=== PATIENT | male | born 1950 ===

== ENCOUNTER 2017-04-17 06:06 | Day surgery (SDC) | payer MEDICARE, OTHER ==
--- NOTE | 2017-04-16 12:51 | Pre-Procedure Note/Attestation ---
Pre-Procedure Note/Attestation Complete Prior to Procedure Planned Procedure: right Procedure Narrative: phaco with IOL, OD Indications for Procedure Pre-Operative Diagnosis: cataract Attestation I attest that I discussed the nature of the procedure; its benefits; risks and complications; and alternatives (and the risks and benefits of such alternatives ), prior to the procedure, with the patient (or the patient's legal health and safety representative). I attest that, if there was a reasonable possibility of needing a blood transfusion, the patient (or the patient's legal health and safety representative) was given the [facility] standardized written summary, pursuant to the [place] Blood Safety Act ([place] Health and Safety Code # 1645, as amended). I attest that I re-evaluated the patient just prior to the surgery and that there has been no change in the patient's H&P, except as documented below: SHELLY SIMMS Apr 16, 2017 12:51
--- NOTE | 2017-04-16 12:54 | Opthalmology H&P ---
Ophthalmology H&P H&P Chief Complaint: decreased vision in right eye HPI Vision Affects Ability to: read, focus/use eyes together, manage personal affairs HPI Narrative blurry vision Exam Visual Acuity: OD: 20/100 OS: 20/80 Tension: OD: 13 OS: 16 Eye Exam: normal OU: external exam, palpebral fissure-width, marginal reflex distance, levator function, corneas, anterior chambers, findings: lens - OD: ns OS: ns, fundus exam - increased cd Ratio Assessment/Plan Diagnosis: (1) Nuclear senile cataract of right eye Attestation Attestation The risks and benefits of the surgery as well as alternative procedures were explained to the patient in detail. SHELLY SIMMS Apr 16, 2017 12:54
[~2017-04-17] VITALS: Ht 188 cm; Wt 72.6 kg
[2017-04-17] VITALS (10 sets, daily range): BP systolic 121–136; BP diastolic 65–80
[~2017-04-17 06:06] MED LIST: ASPIR 8181 MG ORAL; BENICAR20 MG ORAL; DEXILANT30 MG ORAL; LIPITOR40 MG ORAL; MULTIVITAMINS1 EAC2 ORAL; VITAMIN D1000 UNI1 ORAL
[2017-04-17] MEDS ORDERED: Tetracaine 0.5% Opth 4ml Soln RIGHT EYE ONE (07:00)
[2017-04-17] MEDS ORDERED: Akten 3.5% 1ml Btl RIGHT EYE ONE (07:00)
[2017-04-17] MEDS ORDERED: Proparacaine 0.5% Opth Soln 15ml RIGHT EYE ONE (07:00)
[2017-04-17] MEDS: Tropicamide 1% Opth 15ml Soln RIGHT EYE SCH ×3 (08:30→08:56)
[2017-04-17] MEDS: Cyclopentolate 1% Opth Sol 2ml RIGHT EYE SCH ×3 (08:31→08:55)
[2017-04-17] MEDS: Tobramycin Op Soln 0.3% 5ml RIGHT EYE SCH ×3 (08:31→08:55)
[2017-04-17] MEDS: Phenylephrine 10% Opth Soln 5ml RIGHT EYE SCH ×3 (08:31→08:56)
[2017-04-17] MEDS: Ketorolac Tromethamine Opth 5ml Soln RIGHT EYE SCH ×3 (08:31→08:55)
[2017-04-17] MEDS ORDERED: Maxitrol Opth Oint 3.5gm ONE (09:00)
[2017-04-17] MEDS ORDERED: Sterile Water Irrig 1000ml IRRIG ONE (09:00)
[2017-04-17] MEDS ORDERED: Pred Forte 1% Opth Susp 1ml ONE (09:00)
[2017-04-17] MEDS ORDERED: LR 1000ml ONE (09:00)
[2017-04-17] MEDS ORDERED: Sterile Water 10ml Vial ONE (09:00)
[2017-04-17] MEDS ORDERED: EPINEPHrine 1mg/1ml Amp ONE (09:00)
[2017-04-17] MEDS ORDERED: NS Irrig 1000ml ONE (09:00)
[2017-04-17] MEDS ORDERED: BSS 500ml btl ONE (09:00)
[2017-04-17] MEDS ORDERED: Dexamethasone 4mg/ml vial ONE (09:00)
[2017-04-17] MEDS ORDERED: fentaNYL 100 mcg/2 mL IV ONE (09:00)
[2017-04-17] MEDS ORDERED: Midazolam 2mg/2ml Inj ONE (09:00)
--- NOTE | 2017-04-17 09:07 | Anethesia Preoperative Eval ---
Anesthesia Pre-op PMH/ROS General Date of Evaluation: Apr 17, 2017 Time of Evaluation: 09:06 Anesthesiologist: scarlet ASA Score: ASA 2 Mallampati Score Class I : Soft palate, uvula, fauces, pillars visible Class II: Soft palate, uvula, fauces visible Class III: Soft palate, base of uvula visible Class IV: Only hard plate visible Mallampati Classification: Class II Surgeon: sarah Diagnosis: cataract Surgical Procedure: cataract surgergy Family History: no anesthesia problems Allergies: Coded Allergies: IODINE (Verified Allergy, Severe, 04/16/17) REDNESS, ITCHING, BLISTERS Medications: see eMAR Past Medical History Cardiovascular: Reports: HTN, CAD Pulmonary: Denies: asthma, COPD, CAN, other Gastrointestinal/Genitourinary: Denies: GERD, CRI, ESRD, other Neurologic/Psychiatric: Denies: dementia, CVA, depression/anxiety, TIA, other Endocrine: Denies: DM, hypothyroidism, steroids, other HEENT: Reports: cataract (R), Denies: cataract (L), glaucoma, [place] (L), [place] (R), other Hematology/Immune: Denies: anemia, DVT, bleeding disorder, other Musculoskeletal/Integumentary: Denies: OA, RA, DJD, DDD, edema, other PSxH Narrative: left amputation; cardiac stent 2008 Anesthesia Pre-op Phys. Exam Physician Exam Last Vital Signs Date Time Temp Pulse Resp B/P (MAP) Pulse Ox O2 Delivery O2 Flow Rate FiO2 04/17/17 08:40 97.0 54 18 125/70 99 Room Air 97.0 Constitutional: NAD Neurologic: CN 2-12 intact Cardiovascular: RRR Respiratory: CTA Gastrointestinal: S/NT/ND Airway Exam Mallampati Classification 2 Mallampati Score: Class II MO: full ROM: full Dentures: no upper, no lower Anesthesia Pre-op A/P Studies Pre-op Studies: EKG - sr Risk Assessment & Plan Assessment: denies cp; sob Plan: mac Status Change Before Surgery: No Pre-Antibiotics Drug: none KEISHA NICKERSON CRNA Apr 17, 2017 09:07
[2017-04-17] MEDS ORDERED: BSS 15ml BTL ONE (09:43)
[2017-04-17] MEDS ORDERED: Povidone-Iodine 5% opth solution ONE (09:44)
[2017-04-17] MEDS ORDERED: Pilocarpine 2% Opth 15ml Soln ONE (09:44)
[2017-04-17] MEDS ORDERED: Sodium Hyaluronate 14 mg/ml 0.85ml ONE (09:44)
[2017-04-17] MEDS ORDERED: Dyna-Hex 2% Top Sol 2oz TOPIC ONE (10:00)
--- NOTE | 2017-04-17 10:03 | Immediate Post-Op Evaluation ---
Immediate Post-Op Evalulation Immediate Post-Op Evalulation Procedure: cataract extraction Date of Evaluation: Apr 17, 2017 Time of Evaluation: 09:35 IV Fluids: 300 Blood Pressure Systolic: 120 Blood Pressure Diastolic: 90 Pulse Rate: 48 Respiratory Rate: 14 O2 Sat by Pulse Oximetry: 99 Temperature (Fahrenheit): 98.0 Pain Score (1-10): 0 Nausea: No Vomiting: No Complications none Patient Status: awake, reacts, patent Hydration Status: adequate Drug: none QUINCYRINEVAIONKEISHA CRNA Apr 17, 2017 10:03
--- NOTE | 2017-04-17 11:50 | Brief Operative Note ---
Immediate Post Operative Note Operative Note Chief Complaint: blurry vision, OD Pre-op Diagnosis: cataract, OD Procedure: phaco with IOL, OD Post-op Diagnosis: pseudophakia Post-op Diagnosis: same as pre-op Findings: consistent w/pre-op dx studies Surgeon: Shelly Anesthesiologist: Zafar Anesthesia: MAC Specimen: none Complications: none Condition: stable Fluids: LR Estimated Blood Loss: none Drains: none Implant(s) used?: Yes SHELLY SIMMS Apr 17, 2017 11:50
--- NOTE | 2017-04-17 11:51 | Operative Note - PDOC ---
Operative Note Operative Note Date of Operation/Procedure: Apr 17, 2017 Chief Complaint: blurry vision, OD Pre-op Diagnosis: cataract, OD Procedure: phaco with IOL, OD Post-op Diagnosis: pseudophakia Post-op Diagnosis: same as pre-op Operative Findings: consistent w/pre-op dx studies Surgeon: Shelly Anesthesiologist: Zafar Anesthesia: MAC Specimen: none Complications: none Condition: stable Fluids: LR Estimated Blood Loss: none Drains: none Implant(s) used?: Yes Indications for Procedure cataract Description of Procedure This patient has been complaining visually significant cataract in the affected eye with the best corrected visual acuity under moderate glare conditions worse. The patient complains of difficulties with glare in performing activities of daily living and wants to manage personal affairs with comfort and accuracy and see well enough to move with safety at home and outdoors. The risks, benefits and alternatives of the procedure were discussed with the patient in the office prior to scheduling surgery. All questions from the patient were answered after the surgical procedure was explained in detail. The risks of the procedure as explained to the patient include, but are not limited to, pain, infection, bleeding, loss of vision, retinal detachment, need for further surgery, loss of lens nucleus, double vision, etc. Alternative procedures were discussed which include, to do nothing or seek a second opinion. Informed consent for this procedure was obtained from the patient. The patient was referred to a primary care physician for a cardiopulmonary clearance prior to surgery, after proper evaluation was done patient was properly scheduled for outpatient surgery. The patient was brought to the operating room where the anesthesiologist established I.V. lines and cardiac monitoring leads. Mild intravenous sedation was administered. The patient was then prepared with a 5% solution of povidone -iodine to the conjunctival fornix and lashes, and a 5% solution of povidone- iodine to the lids and periorbital skin. The patient was then draped in the usual sterile fashion. A lid speculum was then placed in the operative eye. A keratome blade was then used to create a biplanar incision into the anterior chamber. Viscoelastics was then instilled into the anterior chamber. A capsulorrhexis was then fashioned with an utrata forceps. BSS and a cannula were then used to hydrodissect and hydro delineate the lens. Paracentesis incision was made at 3 o'clock with sharp blade. The phacoemulsification unit, after being properly adjusted and tested, was then used to emulsify the nucleus followed by aspiration and irrigation of residual cortical material. Healon was then instilled into the anterior chamber. The corneal wound was then enlarged to the size of the optic with the clayton keratome blade. The intraocular lens was then inspected for right power and size and thought to be satisfactory. Then the lens was gently placed in the capsular bag. Positioning within the capsular bag was confirmed by direct visualization. Optic centration was accomplished with a Sinskey hook. Viscoelastics was removed from the anterior chamber using the irrigation and aspiration unit. The corneal wound was then tested for leaks and none were found. The lid speculum were then removed. Sponge and needle counts were correct. An eye patch and shield were placed over the operative eye. The patient was taken to the recovery room in stable condition. There were no complications. The patient tolerated the procedure well. The patient was then transferred to the ambulatory surgery unit in stable and satisfactory condition , was given detailed written instructions and asked to follow up in the office the next day. SHELLY SIMMS Apr 17, 2017 11:51
[2017-04-22 09:44] VITALS: BP 128/80
--- NOTE | 2017-04-22 09:44 | 48 Hour Post Anesthesia Eval ---
Post Anesthesia Evaluation Procedure: cataract extraction Date of Evaluation: Apr 18, 2017 Time of Evaluation: 09:43 Blood Pressure Systolic: 128 0: 80 Pulse Rate: 71 O2 Sat by Pulse Oximetry: 99 Airway: patent Nausea: No Vomiting: No Hydration Status: adequate Cardiopulmonary Status: stable Mental Status/LOC: patient returned to baseline Follow-up Care/Observations: na Post-Anesthesia Complications: none Follow-up care needed: N/A KEISHA NICKERSON CRNA Apr 22, 2017 09:44
== END 2017-04-17 11:30 | disposition home or self-care (01) ==
LOC: SUR 06:06
DX: H25.11 Age-related nuclear cataract, right eye (principal); I11.9 Hypertensive heart disease without heart failure; I25.10 Atherosclerotic heart disease of native coronary artery without angina pectoris; Z95.5 Presence of coronary angioplasty implant and graft; Z88.8 Allergy status to other drugs, medicaments and biological substances
CPT/HCPCS: 66984; J0171; J1100; J2250; J3010; J3370; J7120; V2632; 94003; 94150; A4216

== ENCOUNTER 2017-11-09 05:41 | Day surgery (SDC) | payer MEDICARE, OTHER ==
--- NOTE | 2017-11-04 15:43 | Pre-Procedure Note/Attestation ---
Pre-Procedure Note/Attestation Complete Prior to Procedure Planned Procedure: left Procedure Narrative: phaco with IOL Indications for Procedure Pre-Operative Diagnosis: cataract Attestation I attest that I discussed the nature of the procedure; its benefits; risks and complications; and alternatives (and the risks and benefits of such alternatives ), prior to the procedure, with the patient (or the patient's legal packaging sales representative). I attest that, if there was a reasonable possibility of needing a blood transfusion, the patient (or the patient's legal packaging sales representative) was given the [facility] standardized written summary, pursuant to the [place] Blood Safety Act ([place] Health and Safety Code # 1645, as amended). I attest that I re-evaluated the patient just prior to the surgery and that there has been no change in the patient's H&P, except as documented below: SHELLY SIMMS Nov 04, 2017 15:43
--- NOTE | 2017-11-04 15:45 | Opthalmology H&P ---
Ophthalmology H&P H&P Chief Complaint: decreased vision in left eye HPI Vision Affects Ability to: read, focus/use eyes together HPI Narrative blurry vision Exam Visual Acuity: OD: 20/125 OS: 20/200 Tension: OD: 16 OS: 16 Eye Exam: normal OU: external exam, palpebral fissure-width, marginal reflex distance, levator function, corneas, anterior chambers; findings: lens - OD: IOL OS: ns, fundus exam - 0.65 OU Assessment/Plan Diagnosis: (1) Nuclear senile cataract of right eye Treatment Plan: cataract extraction w/ lens implant Goals of Treatment: improvement of vision, enhance quality of life Attestation Attestation The risks and benefits of the surgery as well as alternative procedures were explained to the patient in detail. SHELLY SIMMS Nov 04, 2017 15:45
[2017-11-09] VITALS (10 sets, daily range): BP systolic 133–146; BP diastolic 54–83
[~2017-11-09] VITALS: Ht 188 cm; Wt 75.7 kg
[2017-11-09] MEDS: Tobramycin Op Soln 0.3% 5ml LEFT EYE SCH ×3 (06:52→07:08)
[2017-11-09] MEDS: Phenylephrine 10% Opth Soln 5ml LEFT EYE SCH ×3 (06:52→07:08)
[2017-11-09] MEDS: Cyclopentolate 1% Opth Sol 2ml LEFT EYE SCH ×3 (06:52→07:08)
[2017-11-09] MEDS: Diclofenac Sod 0.1% Op Soln LEFT EYE SCH ×3 (06:52→07:08)
[2017-11-09] MEDS: Tropicamide 1% Opth 15ml Soln LEFT EYE SCH ×3 (06:53→07:08)
[2017-11-09] MEDS ORDERED: Pilocarpine 2% Opth 15ml Soln ONE (07:00)
[2017-11-09] MEDS ORDERED: Pred Forte 1% Opth Susp 1ml ONE (07:00)
[2017-11-09] MEDS ORDERED: Akten 3.5% 1ml Btl LEFT EYE ONE (07:00)
[2017-11-09] MEDS ORDERED: Proparacaine 0.5% Opth Soln 15ml LEFT EYE ONE (07:00)
[2017-11-09] MEDS ORDERED: Dexamethasone 4mg/ml vial ONE (07:00)
[2017-11-09] MEDS ORDERED: Tetracaine 0.5% Opth 4ml Soln LEFT EYE ONE (07:00)
[2017-11-09] MEDS ORDERED: Maxitrol Opth Oint 3.5gm ONE (07:00)
[2017-11-09] MEDS ORDERED: Midazolam 2mg/2ml Inj ONE (07:42)
[2017-11-09] MEDS ORDERED: DiphenhydrAMINE 50mg/ml Inj IVP PRN (08:15)
[2017-11-09] MEDS ORDERED: LR 1000ml 1,000 ML IVLG SCH (08:15)
[2017-11-09] MEDS ORDERED: fentaNYL 100 mcg/2 mL IV PRN (08:15)
--- NOTE | 2017-11-09 08:15 | Anethesia Preoperative Eval ---
Anesthesia Pre-op PMH/ROS General Date of Evaluation: Nov 09, 2017 Time of Evaluation: 08:11 Anesthesiologist: Sapna ASA Score: ASA 3 Mallampati Score Class I : Soft palate, uvula, fauces, pillars visible Class II: Soft palate, uvula, fauces visible Class III: Soft palate, base of uvula visible Class IV: Only hard plate visible Mallampati Classification: Class II Surgeon: Shelly Diagnosis: L eye cataract Surgical Procedure: L eye cataract extraction Anesthesia History: none Social History: smoking - h/o Family History: no anesthesia problems Allergies: Coded Allergies: IODINE (Verified Allergy, Severe, 11/09/17) REDNESS, ITCHING, HIVES Medications: see eMAR Past Medical History Cardiovascular: Reports: HTN, CAD - stable no recent CP; Denies: IA, valve dz, arrhythmia, other Pulmonary: Denies: asthma, COPD, CAN, other Gastrointestinal/Genitourinary: Reports: GERD; Denies: CRI, ESRD, other Neurologic/Psychiatric: Reports: other - chronic pain; Denies: dementia, CVA, depression/anxiety, TIA Endocrine: Reports: DM - off meds ; Denies: hypothyroidism, steroids, other HEENT: Reports: cataract (L), cataract (R); Denies: glaucoma, [place] (L), [place] (R), other Hematology/Immune: Denies: anemia, DVT, bleeding disorder, other Musculoskeletal/Integumentary: 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 Exam Physician Exam Last Vital Signs Date Time Temp Pulse Resp B/P (MAP) Pulse Ox O2 Delivery O2 Flow Rate FiO2 11/09/17 07:05 Room Air 11/09/17 06:45 98.5 47 18 141/77 (98) 99 98.5 Constitutional: NAD Neurologic: CN 2-12 intact Cardiovascular: RRR, no M/R/G Respiratory: CTA Gastrointestinal: S/NT/ND Airway Exam Mallampati Score: Class II MO: full Neck: stiff ROM: limited Teeth: missing Dentures: no upper, no lower Anesthesia Pre-op A/P Labs see chart Studies Pre-op Studies: EKG - NSR Risk Assessment & Plan Assessment: ASA3 Plan: MAC Status Change Before Surgery: No Pre-Antibiotics Drug: none Shahram Alejo MD Nov 09, 2017 08:15
[2017-11-09] MEDS ORDERED: EPINEPHrine 1mg/1ml Amp ONE (08:18)
[2017-11-09] MEDS ORDERED: Carbachol 0.01% Op Soln 1.5ml vial ONE (08:19)
[2017-11-09] MEDS ORDERED: acetaZOLAMIDE 500mg Inj ONE (08:19)
[2017-11-09] MEDS ORDERED: Lidocaine 2% MPF 5ml Vial INJ ONE (08:19)
[2017-11-09] MEDS ORDERED: BSS 15ml BTL ONE (08:20)
[2017-11-09] MEDS ORDERED: Povidone-Iodine 5% opth solution ONE (08:20)
[2017-11-09] MEDS ORDERED: Bupivacaine 0.75% 30ml vial INJ ONE (08:20)
[2017-11-09] MEDS ORDERED: BSS 500ml btl ONE (08:20)
[2017-11-09] MEDS ORDERED: Sodium Hyaluronate 14 mg/ml 0.85ml ONE (08:21)
[2017-11-09] MEDS ORDERED: LR 1000ml ONE (09:00)
[2017-11-09] MEDS ORDERED: NS Irrig 1000ml ONE (09:00)
[2017-11-09] MEDS ORDERED: Sterile Water Irrig 1000ml IRRIG ONE (09:00)
[2017-11-09] MEDS ORDERED: Propofol 200mg/20ml IV ONE (09:00)
[2017-11-09] MEDS ORDERED: fentaNYL 100 mcg/2 mL IV ONE (09:00)
--- NOTE | 2017-11-09 10:11 | Immediate Post-Op Evaluation ---
Immediate Post-Op Evalulation Immediate Post-Op Evalulation Procedure: L eye cataract extraction Date of Evaluation: Nov 09, 2017 Time of Evaluation: 09:40 IV Fluids: 250 Blood Products: none Estimated Blood Loss: none Urinary Output: none Blood Pressure Systolic: 146 Blood Pressure Diastolic: 65 Pulse Rate: 54 Respiratory Rate: 20 O2 Sat by Pulse Oximetry: 98 Temperature (Fahrenheit): 97.6 Pain Score (1-10): 2 Nausea: No Vomiting: No Complications none Patient Status: awake, patent, none Hydration Status: adequate Shahram Alejo MD Nov 09, 2017 10:11
--- NOTE | 2017-11-09 11:16 | 48 Hour Post Anesthesia Eval ---
Post Anesthesia Evaluation Procedure: L eye cataract extraction Date of Evaluation: Nov 09, 2017 Time of Evaluation: 11:14 Blood Pressure Systolic: 136 0: 72 Pulse Rate: 54 Respiratory Rate: 20 Temperature (Fahrenheit): 97.6 O2 Sat by Pulse Oximetry: 98 Airway: patent Nausea: No Vomiting: No Pain Intensity: 1 Hydration Status: adequate Cardiopulmonary Status: stable Mental Status/LOC: patient returned to baseline Follow-up Care/Observations: n/a Post-Anesthesia Complications: none Follow-up care needed: ready to discharge Shahram Alejo MD Nov 09, 2017 11:16
--- NOTE | 2017-11-10 17:00 | Brief Operative Note ---
Immediate Post Operative Note Operative Note Chief Complaint: blurry vision Pre-op Diagnosis: cataract, OS Procedure: phaco with IOL Post-op Diagnosis: Pseudophakia Post-op Diagnosis: same as pre-op Findings: consistent w/pre-op dx studies Surgeon: Shelly Anesthesiologist: Sapna Anesthesia: MAC Specimen: none Complications: none Condition: stable Fluids: LR Estimated Blood Loss: none Drains: none Implant(s) used?: Yes SHELLY SIMMS Nov 10, 2017 17:00
--- NOTE | 2017-11-11 09:05 | Operative Note - PDOC ---
Operative Note Operative Note Date of Operation/Procedure: Nov 09, 2017 Chief Complaint: blurry vision Pre-op Diagnosis: cataract, OS Procedure: phaco with IOL Post-op Diagnosis: Pseudophakia Post-op Diagnosis: same as pre-op Operative Findings: consistent w/pre-op dx studies Surgeon: Shelly Anesthesiologist: Sapna Anesthesia: MAC Specimen: none Complications: none Condition: stable Fluids: LR Estimated Blood Loss: none Drains: none Implant(s) used?: Yes Indications for Procedure cataract Description of Procedure This patient has been complaining visually significant cataract in the affected eye with the best corrected visual acuity under moderate glare conditions worse. The patient complains of difficulties with glare in performing activities of daily living and wants to manage personal affairs with comfort and accuracy and see well enough to move with safety at home and outdoors. The risks, benefits and alternatives of the procedure were discussed with the patient in the office prior to scheduling surgery. All questions from the patient were answered after the surgical procedure was explained in detail. The risks of the procedure as explained to the patient include, but are not limited to, pain, infection, bleeding, loss of vision, retinal detachment, need for further surgery, loss of lens nucleus, double vision, etc. Alternative procedures were discussed which include, to do nothing or seek a second opinion. Informed consent for this procedure was obtained from the patient. The patient was referred to a primary care physician for a cardiopulmonary clearance prior to surgery, after proper evaluation was done patient was properly scheduled for outpatient surgery. The patient was brought to the operating room where the anesthesiologist established I.V. lines and cardiac monitoring leads. Mild intravenous sedation was administered. The patient was then prepared with a 5% solution of povidone -iodine to the conjunctival fornix and lashes, and a 5% solution of povidone- iodine to the lids and periorbital skin. The patient was then draped in the usual sterile fashion. A lid speculum was then placed in the operative eye. A keratome blade was then used to create a biplanar incision into the anterior chamber. Viscoelastics was then instilled into the anterior chamber. A capsulorrhexis was then fashioned with an utrata forceps followed by a BSS and a cannula were then used to hydrodissect and hydro delineate the lens. Paracentesis incision was made at 3 o'clock with sharp blade. The phacoemulsification unit, after being properly adjusted and tested, was then used to emulsify the nucleus. Residual cortical material was aspirated with the irrigation and aspiration unit. Healon was then instilled into the anterior chamber. The corneal wound was then enlarged to the size of the optic with the clayton keratome blade. The intraocular lens was then inspected for right power and size and thought to be satisfactory. Then the lens was gently placed in the capsular bag. Positioning within the capsular bag was confirmed by direct visualization. Optic centration was accomplished with a Sinskey hook. Viscoelastics was removed from the anterior chamber using the irrigation and aspiration unit. The corneal wound was then tested for leaks and none were found. The lid speculum were then removed. Sponge and needle counts were correct. An eye patch and shield were placed over the operative eye. The patient was taken to the recovery room in stable condition. There were no complications. The patient tolerated the procedure well. The patient was then transferred to the ambulatory surgery unit in stable and satisfactory condition , was given detailed written instructions and asked to follow up in the office the next day. SHELLY SIMMS Nov 11, 2017 09:04
== END 2017-11-09 11:00 | disposition home or self-care (01) ==
LOC: SUR 05:41
DX: H25.12 Age-related nuclear cataract, left eye (principal); I10 Essential (primary) hypertension; E11.9 Type 2 diabetes mellitus without complications; I25.10 Atherosclerotic heart disease of native coronary artery without angina pectoris; K21.9 Gastro-esophageal reflux disease without esophagitis; G89.29 Other chronic pain; Z79.82 Long term (current) use of aspirin; Z88.8 Allergy status to other drugs, medicaments and biological substances; Z89.612 Acquired absence of left leg above knee
CPT/HCPCS: 66984; J0171; J1100; J2250; J2704; J3010; J3370; V2632; 94003; 94150